=== PATIENT | male | born 1960 | race Caucasian/White ===

== ENCOUNTER 2017-10-28 11:08 | Inpatient (IN) ==
--- NOTE | 2017-10-28 11:41 | History & Physical Report ---
Date of Encounter: 10/28/17 Time of Encounter: 11:40 24 Hour HP Update - Instructions Instructions: If the History and Physical is less than 30 days old and was completed prior to A.M. admission and or procedure and has NOT been updated on calendar day of procedure please complete this update prior to performing procedure. - Update Patient reports changes in Medical Condition: No Changes in examination, assessment, or condition: No Changes in Medication: No Preop tests/diagnostics Reviewed: Yes Surgery Remains Indicated: Yes Consent for Planned Operative Procedure(s) Verified: Yes - Pre-Operative Checklist Preoperative Checklist Indicated: No Prophylactic Antibiotic Ordered: Yes Is VTE Prophylaxis Indicated?: Yes
--- NOTE | 2017-10-28 11:43 | Discharge Summary ---
Date of Encounter: 11/01/17 Time of Encounter: 06:56 - Discharge Diagnosis (1) Rotator cuff arthropathy of left shoulder Priority: Primary Status: Chronic (2) Status post reverse total arthroplasty of left shoulder Priority: Primary Status: Acute (3) Failed back surgical syndrome Priority: Secondary Status: Chronic (4) Hypertension Priority: Secondary Status: Chronic Qualifiers: Hypertension type: essential hypertension Qualified Code(s): I10 - Essential (primary) hypertension (5) Hyperlipidemia Priority: Secondary Status: Chronic Qualifiers: Hyperlipidemia type: unspecified Qualified Code(s): E78.5 - Hyperlipidemia , unspecified (6) COPD (chronic obstructive pulmonary disease) Priority: Secondary Status: Chronic Qualifiers: COPD type: unspecified COPD Qualified Code(s): J44.9 - Chronic obstructive pulmonary disease, unspecified (7) Asthma Priority: Secondary Status: Chronic Qualifiers: Asthma severity: unspecified severity Asthma persistence: unspecified Asthma complication type: unspecified Qualified Code(s): J45.909 - Unspecified asthma, uncomplicated (8) Tobacco abuse Priority: Secondary Status: Chronic - Hospital Course Hospital course: Mr. Yu is a 57 year old male Status post left total shoulder replacement The patient had an uneventful postoperative course. They received antibiotics and physical therapy and were discharged in stable condition. There will follow -up in the office in 2 weeks. - Time Spent with Patient Total time spent providing and/or coordinating discharge services: - Discharge Medications Home Medications: Albuterol Sulfate [Ventolin Hfa] 2 puff IH Q4H PRN 01/30/16 [History] Amlodipine Besylate 10 mg PO DAILY 01/30/16 [History] Atorvastatin [Lipitor] 40 mg PO HS 01/30/16 [History] Gabapentin [Neurontin] 600 mg PO TID 01/30/16 [History] Ipratropium/Albuterol Neb [Duoneb] 3 ml IH Q6HR 01/30/16 [History] Metoprolol XL (24 HR) Succ [Toprol Xl] 50 mg PO DAILY 01/30/16 [History] Venlafaxine HCl [Venlafaxine HCl ER] 150 mg PO HS 01/30/16 [History] Lisinopril [Zestril] 10 mg PO DAILY 10/28/17 [History] Pantoprazole Sodium [Protonix] 40 mg PO BID 10/28/17 [History] traZODone [TraZODone] 50 mg PO HS 10/29/17 [History] Allergies/Adverse Reactions: 3 Allergy/AdvReac Type Severity Reaction Status Date / Time Sulfa (Sulfonamide Allergy Rash Verified 10/29/17 11:43 Antibiotics) ibuprofen AdvReac Gastrointestinal Verified 10/29/17 11:43 Upset Primary care physician: Cris Lepe CNP - Patient Status Disposition: Home, Self-Care - Discharge Instructions Follow Up With: María Garcia PAC [Physician Travel Insurance Agent] - 11/03/17 1:45 pm Cris Lepe CNP [Primary Care Provider] - Additional Instructions: Discharge Instructions: Total Shoulder Please call [facility] ([phone]), your Primary Care Physician, or report to the Emergency Room if you have any of the following symptoms: Nausea, vomiting, fever greater that 101.5, swelling, chest pain, shortness of breath, increased pain/redness/drainage/odor for your incision site, numbness/ tingling, or any other concerning symptoms. ACTIVITY: Always keep your arm in the sling. Do not raise your arm away from your body. Do not use your arm to help with getting in or out of bed. No weight bearing permitted. Only perform those exercises given to you by your therapist. Incentive Spirometer 10 times an hour. MEDICATIONS: Upon discharge resume your home medications. Take all the medications as prescribed. Take a stool softener if taking narcotic pain medications. Stool softeners are only effective if you drink enough fluids. Drink 6-8 glass of water or fluids a day, unless this is not allowed for another health problem. Despite using stool softeners, if you haven't had a bowel movement in 3 days, please switch to a gentle laxative. Gentle laxatives are sold over the counter. You should have a bowel movement within 24 hours, if not call the office. You will be discharged from the hospital with a prescription for pain medication. You are encouraged to decrease the use of narcotic pain medication as tolerated. Should you require a refill, please call the office. [facility] prescribes narcotic pain medication for only 4-6 weeks after surgery. If you require pain medication beyond this time period, you may be referred to your Primary Care Physician or to the Pain Clinic for further evaluation. Plan ahead for refills on pain medication as many narcotics either need to be picked up at the office or mailed. It is best to call 48-72 hours in advance of needing a prescription refill so you don't run out of medication. To help control the post-operative pain, you may take NSAIDs (Aleve,Advil, Motrin, Ibuprofen, Naprosyn) or Tylenol as prescribed on the bottle in addition to the pain medication. WOUND CARE: Leave the dressing on for 7-10 days. You may change the dressing if it becomes saturated greater than 50%. Do not get the dressing wet at anytime. Wash your hands with antibacterial soap, rinse and dry prior to any wound care. If you have zonia the visiting nurse or rehab facility can remove the stapes 10-14 days after surgery and place steri-strips across the wound. Leave the steri-strips in place until they fall off on their own. You may let water from the shower run on top of the steri-strips. If you do not have a visiting nurse or rehab facility, you will need to return to the office at 10-14 days for the zonia to be removed. If you have itching or redness around the dressing call the office. FOLLOW-UP: Please follow up with your surgeon in the orthopedic clinic, as scheduled
[2017-10-28] MEDS ORDERED: Acetaminophen IV 1,000 MG/100 ML INFUS..BTL IVPB ONE (12:01)
--- NOTE | 2017-10-28 12:03 | Anesthesia Evaluation PreOp ---
Date of Encounter: 10/28/17 Time of Encounter: 12:01 - Past History Planned Operation: L total shoulder replacement, reverse ball socket Cardiac History: HTN, Hyperlipidemia Pulmonary History: Smoker, Asthma, COPD SPRAY MIXER History: Other (failed back sx, chronic back pain s/p SCS) Anesthesia History: No Prior Anesthetic Complications, Past Anesthesia ( Laminectomy 2004, Lumbar Fustion, Double hernia repair, SCS) Alcohol Use: none Drug use: none Medications and Allergies Albuterol Sulfate [Ventolin Hfa] 2 puff IH Q4H PRN 01/30/16 [History] Amlodipine Besylate 10 mg PO DAILY 01/30/16 [History] Atorvastatin [Lipitor] 40 mg PO HS 01/30/16 [History] Gabapentin [Neurontin] 600 mg PO TID 01/30/16 [History] Ipratropium/Albuterol Neb [Duoneb] 3 ml IH Q6HR 01/30/16 [History] Metoprolol XL (24 HR) Succ [Toprol XL] 50 mg PO DAILY 01/30/16 [History] Mometasone/Formoterol [Dulera 200 Mcg/5 Mcg Inhaler] 2 puff IH BID 01/30/16 [ History] Umeclidinium [place] [Incruse Ellipta] 1 puff IH DAILY 01/30/16 [History] Venlafaxine HCl [Venlafaxine HCl ER] 150 mg PO HS 01/30/16 [History] OxyCODONE Immed Rel [Roxicodone 5 MG] 5 mg PO Q6HR PRN 7 Days #28 tablet [Rx] 3 Allergy/AdvReac Type Severity Reaction Status Date / Time Sulfa (Sulfonamide Allergy Rash Verified 10/20/17 11:39 Antibiotics) ibuprofen AdvReac Gastrointestinal Verified 10/20/17 11:39 Upset - Meds/Allergy Pre-op Review Medications Reviewed: Yes Allergies Reviewed: Yes Beta Blockers on Current Med List: Yes Anesthesia Results - Labs Laboratory Tests 10/20/17 10/20/17 10/20/17 11:39 11:39 11:39 WBC 7.1 Hgb 10.7 L Hct 34.4 L Plt Count 306 PT 11.2 INR 1.0 APTT 39.1 H Sodium 140 Potassium 4.3 Chloride 105 Carbon Dioxide 32 H BUN 9 Creatinine 0.79 - Imaging EKG: report reviewed (SINUS RHYTHM MARKED LEFT AXIS DEVIATION POSSIBLE ANTERIOR MYOCARDIAL INFARCTION, OF INDETERMINATE AGE Electronically Signed On 10-21-2017 9 :06:29 EDT by Reilly Reyes) Anesthesia Exam O2 Sat Height 1.68 m Height 1.68 m Weight 76.657 kg Weight 76.657 kg O2 Sat by Pulse Oximetry 97 Vital Signs Temp Pulse Resp BP Pulse Ox 99.2 F 67 18 136/94 97 10/28/17 11:36 10/28/17 11:36 10/28/17 11:36 10/28/17 11:36 10/28/17 11:36 - HEENT Pupil (Motor): Pupils equal, EOMI Mallampati: II Teeth: Edentulous Oral Opening: Greater than 3 - SPRAY MIXER LOC: Oriented SPRAY MIXER Motor: Normal RUE, Normal LUE, Normal RLE, Normal LLE, Normal Face SPRAY MIXER Sensory: Normal: RUE, LUE, RLE, LLE, Face - Cardiac Rhythm: Regular - Pulmonary Breath Sounds: bilateral Clear Respiratory Effort: Symmetrical Anesthesia Assess/Plan ASA Score: 3 Modified [place] Scale for Level of Consciousness: Cooperative, oriented, and tranquil Anesthetic Plan: General, Regional (L supraclavicular nn block) Monitoring Plan: Standard Monitors Recovery Plan: PACU
[2017-10-28] MEDS ORDERED: Ringers Solution, Lactated 1,000 ML IVC SCH ×3 (12:15→16:57)
[2017-10-28] MEDS ORDERED: Albuterol 2.5 MG/3 ML NEBULIZER IH ONE (12:15)
[2017-10-28] MEDS ORDERED: Dexamethasone 4 MG/ML VIAL ONE ×2 (12:15→12:27)
[2017-10-28] MEDS ORDERED: *HR* FentaNYL (PF) 100 MCG/2 ML VIAL ONE (12:15)
[2017-10-28] MEDS ORDERED: Lidocaine -MPF 2% 2 ML VIAL ONE (12:15)
[2017-10-28] MEDS ORDERED: *HR* Midazolam HCl 2 MG/2 ML VIAL ONE (12:15)
[2017-10-28] MEDS ORDERED: CeFAZolin Syr 2,000MG/20 ML 2,000 MG/20 ML SYRINGE IVPB ONE (12:15)
[2017-10-28] MEDS ORDERED: Ondansetron 4 MG/2 ML VIAL ONE (12:15)
[2017-10-28] MEDS ORDERED: *HR* Succinylcholine 200 MG/10 ML VIAL IVP ONE (12:15)
[2017-10-28] MEDS ORDERED: *HR* Propofol 200 MG/20 ML VIAL IVP ONE (12:16)
--- NOTE | 2017-10-28 13:34 | Anesthesia Procedures ---
Date of Encounter: 10/28/17 Time of Encounter: 13:20 Procedures: Anesthesia - Nerve Block Procedure Date: 10/28/17 Time: 13:20 Allergies/Adv Reactions: sulfa, ibuprofen Pre-op Diagnosis: Left shoulder rotator cuff arthropathy Surgical Procedure: Left total shoulder replacement, reverse ball and socke Checklist: Correct Patient Identifier, Correct procedure, History checked Correct side: Left Blood Thinner: No Monitor Applied: EKG, BP, Pulse Oximetry Supplemental Oxygen via Nasal Cannula (L/min): 2 Sedation: Versed (mg): 2 Sedation: Fentanyl (mcg): 100 Indication: Post Op Analgesia Pre-op Neuro Deficits: No Block Type: Supraclavicular Catheter placed: No Sterile Technique: Yes Ultrasound used: Yes Anatomy identified: Yes Visual spread of Local: Yes Neuro Stimulation: No Blood on Needle Aspiration: No Smooth Injection of Local: Yes Pain with Injection of Local: No Prep: Chlorhexadine Needle: 22 x 50 mm Stimuplex Local: 0.25% Bupivicaine w/Clonidine 20 mcg/cc (15ml SCP, ICB), Ropivacaine ( 30ml ropivicaine 0.5%), Other (Decadron 4mg) Volume (cc): 45 Number of Attempts: 1 Complications: None/effective block Vitals: Vital Signs Temperature 99.2 F 10/28/17 11:36 Pulse Rate 67 10/28/17 11:36 Respiratory Rate 18 10/28/17 11:36 Blood Pressure 136/94 10/28/17 11:36 O2 Sat by Pulse Oximetry 97 10/28/17 11:36 Temperature 99.2 F 10/28/17 12:26 Pulse Rate 69 10/28/17 13:31 Respiratory Rate 16 10/28/17 13:31 Blood Pressure 140/97 10/28/17 13:31 O2 Sat by Pulse Oximetry 99 10/28/17 13:31
[2017-10-28] MEDS ORDERED: *HR* Meperidine 25 MG/ML SYRINGE IVP PRN (13:37)
[2017-10-28] MEDS ORDERED: *HR* Promethazine 25 MG/ML VIAL IVP PRN (13:37)
[2017-10-28] MEDS ORDERED: *HR* Labetalol 100 MG/20 ML MDV IVP PRN (13:37)
[2017-10-28] MEDS ORDERED: *HR* HYDROmorphone (PF) 1 MG/ML SYRINGE IVP PRN (13:37)
[2017-10-28] MEDS ORDERED: *HR* OxyCODONE Immed Rel 5 MG TABLET PO PRN (13:37)
[2017-10-28] MEDS ORDERED: Ondansetron 4 MG/2 ML VIAL IVP ONE (13:37)
[2017-10-28] MEDS ORDERED: *HR* PHENYLEPHRINE 1,000 MCG/10 ML SYRINGE IVP ONE (14:41)
--- NOTE | 2017-10-28 15:09 | Orthopedic Operative Note ---
Date of procedure: 10/28/17 Pre-op diagnosis: Left shoulder cuff tear arthropathy Post-op diagnosis: same Procedure: Procedure: Total Shoulder Replacment Reverse, left Estimated blood loss: 100 cc Hardware: Metal and polyethylene replacement: Arthrex 20 mm +2 with 30 mm screw glenoid baseplate, 3 4.5 screws. 1 5.5 locking screw, 42+4 glenosphere, 8 humeral stem, poly insert 3 and 6 metal Exam Under anesthesia: Full motion no instability Procedural Notes: Irreparable Tear supraspinatus tendon Operative procedure: The patient was brought to the operating room and placed on the operating room table. After general anesthesia was administered the operative shoulder was examined. Findings were noted. The patient was placed in the modified beachchair position. All pressure points were padded appropriately. And the head was stabilized in the neutral position. The operative extremity was prepped and draped in the sterile surgical fashion. The patient received IV antibiotics prior to skin incision. A standard deltopectoral approach was made to the operative shoulder. Incision was made to the skin and subcutaneous tissue,hemo stasis was obtained with Bovie cautery. Using careful blunt dissection the cephalic vein was identified and mobilized medially. The deltopectoral interval was developed and the clavipectoral fascia was incised. The subscap was released off the lesser tuberosity and tagged with #2 FiberWire suture subscap was irreparable. The humerus was dislocated patient noted to have irreparable tear supraspinatus tendon, and the humeral cut was made along the anatomic neck. Anterior and posterior Bankart retractors were placed to expose the glenoid. The glenoid guide was seated and the centering hole was made. It was reamed with the appropriate reamer. 28 +2 millimeter baseplate with 30 mm central screw was seated and secured with (3) 4.5 cortical screws and one 5.5 locking screw. The baseplate was irrigated and dried and the 42+4 Glenosphere was seated and secured with the Rodrigues taper. The Rodrigues taper was tested and found to be secure the humerus was redislocated and prepared with the diaphyseal reamers, followed by a broaching process up to the appropriate size 8 in the patient's anatomic version. The metaphyseal reamer was then utilized. Trial reduction found the shoulder to be relocatable. Trial components were removed and the 8 stem was impacted in place in the patient's anatomic version. Trial reduction found the shoulder to be relocatable and stable with the appropriate 6 metal 3 Genet Trial component was removed and the real implants was seated and secured the shoulder was reduced. The shoulder had excellent motion and excellent stability and no evidence of dislocation. The deep tissue was irrigated with pulse irrigation. The deltopectoral interval was closed with a running #1 PDS suture, subcutaneous tissue was irrigated and closed with 0 PDS suture, the skin was closed with skin zonia. The patient was placed in a sterile dressing, abduction brace and extubated. The patient was then transferred to the recovery room in stable condition. Anesthesia: GETA Surgeon: Jovon Dumont Was there an training and development assistant present: No Estimated blood loss (cc): 100 Condition: stable Disposition: PACU
[2017-10-28 16:00] LABS: Hematocrit 35.1 % (37.5-50.1); Hemoglobin 11.2 g/dL (12.9-16.9)
[2017-10-28] MEDS ORDERED: MOM Conc 10 ML UD.LIQ PO PRN (16:57)
[2017-10-28] MEDS ORDERED: Temazepam 15 MG CAPSULE PO PRN (16:57)
[2017-10-28] MEDS ORDERED: Naloxone 0.4 MG/ML INJ IVP PRN (16:57)
[2017-10-28] MEDS ORDERED: traMADol 50 MG TABLET PO PRN (16:57)
[2017-10-28] MEDS ORDERED: Ondansetron 4 MG/2 ML VIAL IVP PRN (16:57)
[2017-10-28] MEDS ORDERED: Sennosides 8.6 MG TABLET PO PRN (16:57)
--- NOTE | 2017-10-28 17:19 | Physician Discharge Referral ---
Home Health/Hosp Referral Info Transfer to: Home Health Attending Provider: Tim - Diagnosis (1) Status post reverse total arthroplasty of left shoulder Priority: Primary Status: Acute (2) Rotator cuff arthropathy of left shoulder Priority: Secondary Status: Chronic (3) Asthma Priority: Secondary Status: Chronic (4) COPD (chronic obstructive pulmonary disease) Priority: Secondary Status: Chronic (5) Hyperlipidemia Priority: Secondary Status: Chronic (6) Hypertension Priority: Secondary Status: Chronic (7) Tobacco abuse Priority: Secondary Status: Chronic (8) Failed back surgical syndrome Priority: Secondary Status: Chronic - Respiratory Orders Smoking Cessation: Smoking cessation has been advised. For more information, call the [place] Tobacco Quit Line at 5-104-MUVA-NOW. - Diet/Nutrition Diet/Nutrition Orders: Regular - Activity Activity Orders: Up ad mary - Services Needed Following services are medically necessary services: Physical Therapy, Occupational Therapy Home Care Orders: Opsite dressing, leave intact until first post-operative visit. Zipline/Saira in place, plan to remove at post-operative day #14-16. If dressing becomes >50% saturated, contact office, remove dressing and place appropriate dressing in its place. Do not allow for dressing to get wet. Shoulder Precautions x 6 weeks. Apply cold therapy wrap 3-6x/day for 20 minutes at a time. Encourage ambulation throughout the day. Use Incentive spirometer 10x/hour. Elevate affected extremity above heart as tolerated. NWB to affected upper extremity x 6 weeks. Will remove brace at first post-operative appointment. OK to remove during PT/ OT and Home exercises. - Transfer Medications Home Medications: Albuterol Sulfate [Ventolin Hfa] 2 puff IH Q4H PRN 01/30/16 [History] Amlodipine Besylate 10 mg PO DAILY 01/30/16 [History] Atorvastatin [Lipitor] 40 mg PO HS 01/30/16 [History] Gabapentin [Neurontin] 600 mg PO TID 01/30/16 [History] Ipratropium/Albuterol Neb [Duoneb] 3 ml IH Q6HR 01/30/16 [History] Metoprolol XL (24 HR) Succ [Toprol Xl] 50 mg PO DAILY 01/30/16 [History] Venlafaxine HCl [Venlafaxine HCl ER] 150 mg PO HS 01/30/16 [History] Lisinopril [Zestril] 10 mg PO DAILY 10/28/17 [History] Pantoprazole Sodium [Protonix] 40 mg PO BID 10/28/17 [History] Allergies/Adverse Reactions: 3 Allergy/AdvReac Type Severity Reaction Status Date / Time Sulfa (Sulfonamide Allergy Rash Verified 10/20/17 11:39 Antibiotics) ibuprofen AdvReac Gastrointestinal Verified 10/20/17 11:39 Upset Certification: Further, I certify that my clinical findings support that this patient is homebound (i.e. absences from home require considerable and taxing effort and are for medical reasons or jain services or infrequently or short duration when for other reasons) because: Homebound Reason: Post-surgery restriction and or conditions limit ability to leave home Attestation: My signature below is to certify that this patient is under my care and that I, or nurse practitioner, or a physician habilitation assistant working with me, has a face-to- face encounter with this patient.
--- NOTE | 2017-10-28 17:20 | Anesthesia Evaluation Post Op ---
Date of Encounter: 10/28/17 Time of Encounter: 15:58 - Discharge PostOp Status: Transfer Patient to floor (Patient's vital signs have been reviewed. Patient is stable postoperatively and has adequately recovered from anesthesia. Patient is determined to have stable airway patency and respiratory function including respiratory rate and oxygen saturation. Patient has a stable heart rate, blood pressure and adequate hydration. Patients mental status is acceptable. Patients temperature is appropriate. Pain and nausea are adequately controlled.)
[2017-10-28] MEDS: Gabapentin 300 MG CAPSULE PO SCH ×2 (17:43→20:07)
[2017-10-28] MEDS ORDERED: *HR* Enoxaparin 30 MG/0.3 ML SYRINGE SQ SCH ×2 (18:00)
[2017-10-28] MEDS: Venlafaxine XR (24 HR) 75 MG CAP.ER.24H PO SCH (20:07)
[2017-10-28] MEDS: Ipratropium/Albuterol Neb 3 ML IH SCH (22:01)
[2017-10-29 01:42] LABS: Hematocrit 34.1 % (37.5-50.1)
[2017-10-29] MEDS: *HR* OxyCODONE/APAP 5/325 TABLET PO PRN ×2 (02:16→07:51)
[2017-10-29] MEDS: Ipratropium/Albuterol Neb 3 ML IH SCH ×4 (03:06→22:42)
[2017-10-29] MEDS: *HR* OxyCODONE Immed Rel 5 MG TABLET PO PRN ×4 (05:31→22:06)
[2017-10-29] MEDS: Gabapentin 300 MG CAPSULE PO SCH ×3 (07:51→21:31)
[2017-10-29] MEDS: amLODIPine 5 MG TABLET PO SCH (07:52)
[2017-10-29] MEDS: Metoprolol XL (24 HR) Succ 50 MG TAB.ER.24H PO SCH (07:52)
[2017-10-29] MEDS ORDERED: *HR* Morphine Sulfate SR (12 HR) 15 MG TABLET.ER PO ONE (10:00)
[2017-10-29] MEDS ORDERED: *HR* FentaNYL (PF) 100 MCG/2 ML VIAL IVP ONE (11:58)
--- NOTE | 2017-10-29 13:21 | Orthopedics Progress Note ---
Date of Encounter: 10/29/17 Time of Encounter: 13:19 Subjective Interval history: L shoulder pain. Block has worn off. AFVSS Hg 11 RLE: DNVI ax/m/r/u Dressing clean dry and intact Calves nontender A/P: s/p L TSA PT as scheduled PO pain control Discharge planning, d/c when pain controlled Objective Vital signs: Vital Signs Temp Pulse Resp BP Pulse Ox 10/29/17 11:59 160/90 10/29/17 11:29 98.3 F 89 18 183/115 94 10/29/17 09:42 24 95 10/29/17 07:13 99.2 F 79 16 159/100 94 10/29/17 03:24 98.9 F 72 18 134/87 95 10/29/17 03:06 20 92 10/28/17 23:08 99.1 F 62 18 131/84 94 10/28/17 22:02 18 95 10/28/17 20:20 98.5 F 69 16 135/69 93 10/28/17 19:30 73 136/89 94 10/28/17 17:45 98.1 F 73 16 126/84 96 10/28/17 16:58 98 F 59 16 117/78 92 10/28/17 15:55 98.3 F 67 16 126/89 96 10/28/17 15:45 98.8 F 68 16 125/88 95 10/28/17 15:35 73 16 124/86 94 10/28/17 15:25 80 16 124/87 94 10/28/17 15:15 97.9 F 86 16 141/90 100 10/28/17 13:57 61 16 124/87 98 10/28/17 13:49 61 16 136/110 98 10/28/17 13:31 69 16 140/97 99 Intake and Output 10/28/17 10/29/17 10/29/17 23:59 07:59 15:59 Intake Total 100 / 100 Output Total 200 / 200 250 / 250 350 / 350 Balance -100 / -100 -250 / -250 -350 / -350 Intake: IV Fluids 100 / 100 Ancef 2,000 MG In 0.9 % Sodium 100 / 100 Chloride 100 ML @ 200 mls/hr IVPB Q8H [facility] Rx#:[id number] Output: Urine 200 / 200 250 / 250 350 / 350 - Labs CBC & BMP: 10/29/17 00:59 Labs: Abnormal lab results Hgb 11.0 g/dL (12.9-16.9) L 10/29/17 00:59 Hct 34.1 % (37.5-50.1) L 10/29/17 00:59 - VTE Documentation of Mechanical Device: Venous foot pump, device Consult Discharge Plan - Plan Referrals: Cris Lepe, INJURY/SAFETY HAZARD ASSESSMENT [Primary Care Provider] -
[2017-10-29] MEDS: Venlafaxine XR (24 HR) 75 MG CAP.ER.24H PO SCH (21:31)
[2017-10-30 01:29] LABS: Hematocrit 34.3 % (37.5-50.1); Hemoglobin 11.2 g/dL (12.9-16.9)
[2017-10-30] MEDS: *HR* OxyCODONE Immed Rel 5 MG TABLET PO PRN ×2 (04:16→08:57)
[2017-10-30] MEDS: Ipratropium/Albuterol Neb 3 ML IH SCH ×2 (04:28→10:51)
[2017-10-30 07:32] VITALS: BP 176/107
[2017-10-30] MEDS: Metoprolol XL (24 HR) Succ 50 MG TAB.ER.24H PO SCH (07:47)
[2017-10-30] MEDS: amLODIPine 5 MG TABLET PO SCH (07:48)
[2017-10-30] MEDS: Gabapentin 300 MG CAPSULE PO SCH (07:48)
--- NOTE | 2017-10-30 09:08 | Orthopedics Progress Note ---
Date of Encounter: 10/30/17 Time of Encounter: 09:08 Subjective Interval history: L shoulder pain tolerable. Block has worn off. AFVSS Hg 11.2 RLE: DNVI ax/m/r/u Dressing clean dry and intact Calves nontender A/P: s/p L TSA PT as scheduled PO pain control Discharge planning, d/c today Objective Vital signs: Vital Signs Temp Pulse Resp BP Pulse Ox 10/30/17 07:31 98.9 F 101 20 176/107 95 10/29/17 23:13 98.8 F 94 18 150/94 93 10/29/17 22:42 16 94 10/29/17 18:45 99.1 F 82 18 184/80 96 10/29/17 16:50 98.9 F 93 20 179/108 96 10/29/17 16:13 24 94 10/29/17 11:59 160/90 10/29/17 11:29 98.3 F 89 18 183/115 94 10/29/17 09:42 24 95 Intake and Output 10/29/17 10/30/17 10/30/17 23:59 07:59 15:59 Intake Total 400 / 400 Balance 400 / 400 Intake: Oral 400 / 400 Other: # Voids 1 - Labs CBC & BMP: 10/30/17 01:09 Labs: Abnormal lab results Hgb 11.2 g/dL (12.9-16.9) L 10/30/17 01:09 Hct 34.3 % (37.5-50.1) L 10/30/17 01:09 - VTE Documentation of Mechanical Device: Intermittent pneumatic compression device Consult Discharge Plan - Plan Referrals: Cris Lepe, [facility] [Primary Care Provider] -
== END 2017-10-30 11:05 | disposition home or self-care (01) | DRG 315 ==
LOC: SAMDAY 11:08 → 3NENU 16:18
PROVIDERS: ADMIT Orthopaedic Surgery; ATTEND Orthopaedic Surgery